=== PATIENT | female | born 1955 | race Caucasian/White ===

== ENCOUNTER 2017-07-18 18:18 | Emergency (ER) | payer OTHER, MEDICAID ==
[~2017-07-18 18:18] MED LIST: AMBIEN10 MG PO; CELEXA20 MG PO; CLEOCIN HCL300 MG PO; COUMADIN1 MG; COUMADIN2.5 MG PO; CYMBALTA20 M1 PO; DIABETA1.25 MG PO; FENOFIBRATE MIC43 MG PO; IBUPROFEN800 MG PO; LAC PO; LAMOTRIGINE25 MG PO; LEVAQUIN750 MG PO; LEVOTHYROXIN0.025 M2; LEVOTHYROXIN0.112 M1 PO; LEVOTHYROXINE0.1 M2 PO; LOSARTAN POTAS100 M1 PO; LOSARTAN POTASS25 M1 PO; MAGNESIUM OXID400 MG PO; METFORMIN ER500 M1; METFORMIN ER500 M1 PO; METFORMIN HCL1000 MG PO; METFORMIN500 M1 PO; METOPROLOL SUCC25 M1; NAPROSYN500 MG PO; NAPROXEN500 M2 PO; NORCO1 TA2 PO; OMEPRAZOLE40 M1 PO; PRA40 PO; PRAVACHOL10 MG; PRAVASTATIN20 M1 PO; TOPROL XL25 MG PO; TRAMADOL50 M1 PO; XARELTO20 M1 PO; ZOLPIDEM TARTRA10 MG PO; ZOLPIDEM5 M1
[2017-07-18 21:21] LABS: BASOPHIL % 0.4 % (0-2); PLATELET COUNT 367 x10^3mcL (130-400)
[2017-07-18 21:22] LABS: CALCIUM 9.5 mg/dL (8.5-10.1); CHLORIDE SERUM 104 mmol/L (98-107); CREATININE SERUM 0.7 mg/dL (0.6-1.0); GFR1 > 60 mL/min; GLUCOSE SERUM 138 mg/dL (74-106); POTASSIUM SERUM 5.2 mmol/L (3.5-5.1); SODIUM SERUM 140 mmol/L (136-145)
[2017-07-18 21:23] LABS: RED CELL DISTRIBUTION WIDTH 15.2 % (11.5-14.5)
[2017-07-18 21:27] LABS: ALBUMIN 3.6 g/dL (3.4-5.0); ALKALINE PHOSPHATASE 107 U/L (46-116); ALT/SGPT 33 U/L (14-59); AST/SGOT 23 U/L (15-37); BILIRUBIN TOTAL 0.4 mg/dL (0.20-1.00); TOTAL PROTEIN, SERUM 7.8 g/dL (6.4-8.2)
[2017-07-18 21:31] LABS: rbc morphology (normal/abnorm) ABNORMAL (NORMAL)
[2017-07-19 00:23] VITALS: BP 138/83
== END 2017-07-19 00:25 | disposition home or self-care (01) ==
LOC: ED 18:18
PROVIDERS: Emergency Medicine
DX: S00.83XA Contusion of other part of head, initial encounter (principal); I10 Essential (primary) hypertension; E11.9 Type 2 diabetes mellitus without complications; R07.89 Other chest pain; Z88.8 Allergy status to other drugs, medicaments and biological substances; Z79.84 Long term (current) use of oral hypoglycemic drugs; Y08.89XA Assault by other specified means, initial encounter; Y93.89 Activity, other specified; Y99.8 Other external cause status; Y92.89 Other specified places as the place of occurrence of the external cause
CPT/HCPCS: 36415; Q0092

== ENCOUNTER 2017-08-31 07:27 | Emergency (ER) | payer OTHER ==
[~2017-08-31] VITALS: Ht 167.6 cm; Wt 92.1 kg
[2017-08-31 09:05] VITALS: BP 137/89
== END 2017-08-31 09:05 | disposition home or self-care (01) ==
LOC: ED 07:27
DX: S60.221A Contusion of right hand, initial encounter (principal); I10 Essential (primary) hypertension; E11.9 Type 2 diabetes mellitus without complications; E03.9 Hypothyroidism, unspecified; Z88.1 Allergy status to other antibiotic agents; Z79.84 Long term (current) use of oral hypoglycemic drugs; V49.9XXA Car occupant (driver) (passenger) injured in unspecified traffic accident, initial encounter; Y93.89 Activity, other specified; Y99.8 Other external cause status; Y92.89 Other specified places as the place of occurrence of the external cause

== ENCOUNTER 2017-10-10 15:14 | Emergency (ER) | payer OTHER ==
[2017-10-10 17:36] VITALS: BP 178/101
== END 2017-10-10 17:36 | disposition home or self-care (01) ==
LOC: ED 15:14
DX: J40 Bronchitis, not specified as acute or chronic (principal); E78.00 Pure hypercholesterolemia, unspecified; I10 Essential (primary) hypertension; E11.9 Type 2 diabetes mellitus without complications; E07.9 Disorder of thyroid, unspecified; I48.91 Unspecified atrial fibrillation; M19.90 Unspecified osteoarthritis, unspecified site; F32.9 Major depressive disorder, single episode, unspecified; Z88.1 Allergy status to other antibiotic agents
CPT/HCPCS: Q0092

== ENCOUNTER 2017-12-12 17:11 | Inpatient (IN) | payer OTHER ==
[~2017-12-12] VITALS: Ht 167.6 cm; Wt 91.7 kg
[~2017-12-12 17:11] MED LIST changes: -CELEXA20 MG PO; +CELEXA40 MG PO
[2017-12-12 17:23] VITALS: Ht 167.6 cm; Wt 91.7 kg
[2017-12-12 17:52] LABS: UA SPECIFIC GRAVITY <=1.005 (1.005-1.035); microscopic required? YES; urine erythrocyte NEGATIVE (NEGATIVE)
[2017-12-12 18:37] LABS: PLATELET COUNT 348 x10^3mcL (130-400)
[2017-12-12 18:39] LABS: RED CELL DISTRIBUTION WIDTH 16.7 % (11.5-14.5)
[2017-12-12 18:52] LABS: CARBON DIOXIDE 28.9 mmol/L (21-32); CHLORIDE SERUM 101 mmol/L (98-107); CREATININE SERUM 0.8 mg/dL (0.6-1.0); GFR1 > 60 mL/min; GLUCOSE SERUM 136 mg/dL (74-106); POTASSIUM SERUM 4.3 mmol/L (3.5-5.1); SODIUM SERUM 138 mmol/L (136-145)
[2017-12-12 18:57] LABS: ALKALINE PHOSPHATASE 182 U/L (46-116); ALT/SGPT 110 U/L (14-59); AST/SGOT 53 U/L (15-37); BILIRUBIN TOTAL 0.41 mg/dL (0.20-1.00)
[2017-12-12 18:58] LABS: ALBUMIN 3.3 g/dL (3.4-5.0)
[2017-12-12] MEDS ORDERED: GOOD SENSE ASPI81 M3 PO (20:29)
[2017-12-12] MEDS ORDERED: AMARYL4 MG PO (20:29)
[2017-12-12] MEDS ORDERED: RISPERDAL1 M1 PO (21:09)
[2017-12-12 21:18] VITALS: BP 179/121
[2017-12-12 21:25] LABS: AMPHETAMINE QUAL UR NONE DETECTED (NEG <=1000)
[2017-12-12 21:26] LABS: MAGNESIUM 1.4 mg/dL (1.8-2.4); PHOSPHOROUS 3.4 mg/dL (2.5-4.9)
[2017-12-12 21:27] LABS: CHOLESTEROL/HDL RATIO 5.8
[2017-12-12 21:38] LABS: T3 TOTAL 0.73 ng/mL
[2017-12-12] MEDS ORDERED: LEADER MAGNESIU1 TAB PO (21:50)
[2017-12-12 21:58] LABS: FREE T4 0.97 ng/dL (0.76-1.46); FREE THYROXINE INDEX 3.1 ug/dL (1.4-4.5)
[2017-12-12] MEDS ORDERED: CARVEDILOL6.25 M1 PO (23:23)
[2017-12-13 02:21] LABS: TOTAL IRON BINDING CAPACITY 374 ug/dL (250-450)
[2017-12-13 02:30] LABS: IRON 23 ug/dL (50-170)
[2017-12-13 03:06] LABS: RED BLOOD CELLS 4.3 M/mm3 (4.10-5.10)
[2017-12-13 04:40] VITALS: BP 125/68
[2017-12-13 06:20] LABS: CALCIUM 8.9 mg/dL (8.5-10.1); CARBON DIOXIDE 29.9 mmol/L (21-32); CHLORIDE SERUM 101 mmol/L (98-107); CREATININE SERUM 0.8 mg/dL (0.6-1.0); GFR1 > 60 mL/min; GLUCOSE SERUM 192 mg/dL (74-106); MAGNESIUM 1.4 mg/dL (1.8-2.4); PHOSPHOROUS 3.8 mg/dL (2.5-4.9); POTASSIUM SERUM 4.3 mmol/L (3.5-5.1); SODIUM SERUM 135 mmol/L (136-145)
[2017-12-13 06:22] LABS: BASOPHIL % 0.4 % (0-2); PLATELET COUNT 311 x10^3mcL (130-400)
[2017-12-13 06:42] LABS: RED CELL DISTRIBUTION WIDTH 16.2 % (11.5-14.5)
[2017-12-13 06:44] LABS: rbc morphology (normal/abnorm) ABNORMAL (NORMAL)
[2017-12-13 09:20] VITALS: BP 146/78
[2017-12-13 12:41] VITALS: BP 140/71
[2017-12-13 17:03] VITALS: BP 169/80
[2017-12-13 19:00] VITALS: BP 150/72
[2017-12-13 20:40] VITALS: BP 172/84
[2017-12-14 05:22] VITALS: BP 113/67
[2017-12-14 06:05] LABS: BASOPHIL % 0.8 % (0-2); PLATELET COUNT 335 x10^3mcL (130-400)
[2017-12-14 06:07] LABS: RED CELL DISTRIBUTION WIDTH 16.6 % (11.5-14.5)
[2017-12-14 06:45] LABS: CALCIUM 8.9 mg/dL (8.5-10.1); CARBON DIOXIDE 27.3 mmol/L (21-32); CHLORIDE SERUM 104 mmol/L (98-107); CREATININE SERUM 0.7 mg/dL (0.6-1.0); GFR1 > 60 mL/min; GLUCOSE SERUM 133 mg/dL (74-106); MAGNESIUM 1.5 mg/dL (1.8-2.4); PHOSPHOROUS 4.1 mg/dL (2.5-4.9); POTASSIUM SERUM 4.1 mmol/L (3.5-5.1); SODIUM SERUM 138 mmol/L (136-145)
[2017-12-14 07:33] LABS: rbc morphology (normal/abnorm) ABNORMAL (NORMAL)
[2017-12-14 09:24] VITALS: BP 132/63
[2017-12-14 14:15] VITALS: BP 114/71
[2017-12-14] MEDS ORDERED: MAC100 PO (15:13)
[2017-12-14] MEDS ORDERED: LAC PO (15:15)
[2017-12-14 15:45] VITALS: BP 114/71
[2017-12-14 16:29] VITALS: BP 134/69
== END 2017-12-14 16:40 | disposition home or self-care (01) | DRG 690 ==
LOC: ED 17:11 → DU 19:52
PROVIDERS: Emergency Medicine; Family Medicine
DX: N39.0 Urinary tract infection, site not specified (principal); E44.0 Moderate protein-calorie malnutrition; E87.1 Hypo-osmolality and hyponatremia; M94.0 Chondrocostal junction syndrome [Tietze]; E11.9 Type 2 diabetes mellitus without complications; I10 Essential (primary) hypertension; Z90.49 Acquired absence of other specified parts of digestive tract; G90.8 Other disorders of autonomic nervous system; Z68.32 Body mass index [BMI] 32.0-32.9, adult; E66.9 Obesity, unspecified; F32.9 Major depressive disorder, single episode, unspecified; K21.9 Gastro-esophageal reflux disease without esophagitis; I48.0 Paroxysmal atrial fibrillation; Z88.8 Allergy status to other drugs, medicaments and biological substances; E83.42 Hypomagnesemia; D64.9 Anemia, unspecified; E03.9 Hypothyroidism, unspecified; F41.1 Generalized anxiety disorder
CPT/HCPCS: 83880; 84439; J0696; J2916; J3010; J3475; J7030; Q0092; Q9967

== ENCOUNTER 2018-01-12 15:33 | Emergency (ER) | payer OTHER ==
[~2018-01-12] VITALS: Ht 167.6 cm; Wt 93.9 kg
[~2018-01-12 15:33] MED LIST changes: +AMARYL4 MG PO; +CARVEDILOL6.25 M1 PO; +GOOD SENSE ASPI81 M3 PO; +LEADER MAGNESIU1 TAB PO; +MAC100 PO; +RISPERDAL1 M1 PO
[2018-01-12 17:48] VITALS: BP 145/74
== END 2018-01-12 17:49 | disposition home or self-care (01) ==
LOC: ED 15:33
DX: R32 Unspecified urinary incontinence (principal); I10 Essential (primary) hypertension; E11.9 Type 2 diabetes mellitus without complications; E07.9 Disorder of thyroid, unspecified; E78.00 Pure hypercholesterolemia, unspecified; M19.90 Unspecified osteoarthritis, unspecified site; F32.9 Major depressive disorder, single episode, unspecified; I48.91 Unspecified atrial fibrillation; Z86.79 Personal history of other diseases of the circulatory system; Z86.59 Personal history of other mental and behavioral disorders

== ENCOUNTER 2018-01-25 18:07 | Emergency (ER) | payer OTHER ==
[~2018-01-25] VITALS: Ht 167.6 cm; Wt 92.1 kg
[2018-01-25 18:15] VITALS: Ht 167.6 cm; Wt 92.1 kg
[2018-01-25 19:14] LABS: BASOPHIL % 0.1 % (0-2); PLATELET COUNT 306 x10^3mcL (130-400)
[2018-01-25 19:15] LABS: UA SPECIFIC GRAVITY 1.015 (1.005-1.035); microscopic required? YES; urine erythrocyte NEGATIVE (NEGATIVE)
[2018-01-25 19:15] LABS: RED CELL DISTRIBUTION WIDTH 17.3 % (11.5-14.5)
[2018-01-25 19:18] LABS: CALCIUM 8.7 mg/dL (8.5-10.1); CARBON DIOXIDE 30.7 mmol/L (21-32); CHLORIDE SERUM 97 mmol/L (98-107); CREATININE SERUM 0.8 mg/dL (0.6-1.0); GFR1 > 60 mL/min; GLUCOSE SERUM 148 mg/dL (74-106); POTASSIUM SERUM 4.4 mmol/L (3.5-5.1); SODIUM SERUM 134 mmol/L (136-145)
[2018-01-25 19:23] LABS: ALBUMIN 3.6 g/dL (3.4-5.0); ALKALINE PHOSPHATASE 206 U/L (46-116); ALT/SGPT 300 U/L (14-59); AST/SGOT 296 U/L (15-37); BILIRUBIN TOTAL 0.7 mg/dL (0.20-1.00); TOTAL PROTEIN, SERUM 7.5 g/dL (6.4-8.2)
[2018-01-25 22:16] VITALS: BP 141/67
== END 2018-01-25 22:16 | disposition home or self-care (01) ==
LOC: ED 18:07
PROVIDERS: Emergency Medicine
DX: K75.9 Inflammatory liver disease, unspecified (principal); R00.2 Palpitations; I10 Essential (primary) hypertension; E11.9 Type 2 diabetes mellitus without complications; I48.91 Unspecified atrial fibrillation; Z88.2 Allergy status to sulfonamides; Z88.1 Allergy status to other antibiotic agents
CPT/HCPCS: 36415; Q0092

== ENCOUNTER 2018-01-30 07:51 | Emergency (ER) | payer OTHER ==
[~2018-01-30] VITALS: Ht 167.6 cm; Wt 90.3 kg
[2018-01-30 07:55] VITALS: Ht 167.6 cm; Wt 90.3 kg
[2018-01-30 08:59] VITALS: BP 135/78
== END 2018-01-30 08:59 | disposition home or self-care (01) ==
LOC: ED 07:51
DX: J06.9 Acute upper respiratory infection, unspecified (principal); N39.0 Urinary tract infection, site not specified

== ENCOUNTER 2018-03-25 17:08 | Inpatient (IN) | payer OTHER ==
[~2018-03-25] VITALS: Ht 167.6 cm; Wt 91.8 kg
[2018-03-25 17:35] VITALS: Ht 167.6 cm; Wt 91.8 kg
[2018-03-25 21:45] LABS: BASOPHIL % 0.3 % (0-2); PLATELET COUNT 301 x10^3mcL (130-400)
[2018-03-25 21:50] LABS: RED CELL DISTRIBUTION WIDTH 14.9 % (11.5-14.5)
[2018-03-25 22:10] LABS: CALCIUM 8.9 mg/dL (8.5-10.1); CARBON DIOXIDE 30.2 mmol/L (21-32); CHLORIDE SERUM 97 mmol/L (98-107); CREATININE SERUM 0.7 mg/dL (0.6-1.0); GFR1 > 60 mL/min; GLUCOSE SERUM 135 mg/dL (74-106); SODIUM SERUM 134 mmol/L (136-145)
[2018-03-25 22:23] LABS: ALKALINE PHOSPHATASE 193 U/L (46-116); ALT/SGPT 330 U/L (14-59); AST/SGOT 380 U/L (15-37); BILIRUBIN TOTAL 1.87 mg/dL (0.20-1.00); FREE T4 1.24 ng/dL (0.76-1.46); TOTAL PROTEIN, SERUM 7.2 g/dL (6.4-8.2)
[2018-03-25 22:27] LABS: ALBUMIN 3.3 g/dL (3.4-5.0)
[2018-03-25 22:40] LABS: UA SPECIFIC GRAVITY <=1.005 (1.005-1.035); microscopic required? YES; urine erythrocyte NEGATIVE (NEGATIVE)
[2018-03-26 00:05] LABS: CHOLESTEROL/HDL RATIO 4.8; MAGNESIUM 1.2 mg/dL (1.8-2.4); PHOSPHOROUS 3.1 mg/dL (2.5-4.9)
[2018-03-26 00:33] VITALS: BP 144/67
[2018-03-26 05:26] VITALS: BP 110/61
[2018-03-26 06:43] LABS: BASOPHIL % 0.2 % (0-2); PLATELET COUNT 247 x10^3mcL (130-400)
[2018-03-26 06:46] LABS: RED CELL DISTRIBUTION WIDTH 15.1 % (11.5-14.5)
[2018-03-26 06:52] LABS: CALCIUM 8.5 mg/dL (8.5-10.1); CARBON DIOXIDE 27.9 mmol/L (21-32); CHLORIDE SERUM 99 mmol/L (98-107); CREATININE SERUM 0.8 mg/dL (0.6-1.0); GFR1 > 60 mL/min; GLUCOSE SERUM 160 mg/dL (74-106); MAGNESIUM 1.4 mg/dL (1.8-2.4); PHOSPHOROUS 3.7 mg/dL (2.5-4.9); POTASSIUM SERUM 3.9 mmol/L (3.5-5.1); SODIUM SERUM 135 mmol/L (136-145)
[2018-03-26 08:30] VITALS: BP 126/63
[2018-03-26 14:32] LABS: IRON 68 ug/dL (50-170); TOTAL IRON BINDING CAPACITY 306 ug/dL (250-450)
[2018-03-26 15:10] LABS: RED BLOOD CELLS 4.34 M/mm3 (4.10-5.10)
[2018-03-26 16:05] VITALS: BP 118/66
[2018-03-26 21:48] VITALS: BP 107/58
[2018-03-27 05:45] VITALS: BP 107/60
[2018-03-27 06:26] LABS: BASOPHIL % 0.2 % (0-2); PLATELET COUNT 236 x10^3mcL (130-400)
[2018-03-27 06:44] LABS: CALCIUM 8.1 mg/dL (8.5-10.1); CARBON DIOXIDE 28.6 mmol/L (21-32); CREATININE SERUM 1.1 mg/dL (0.6-1.0); POTASSIUM SERUM 3.9 mmol/L (3.5-5.1)
[2018-03-27 07:09] LABS: RED CELL DISTRIBUTION WIDTH 15.4 % (11.5-14.5)
[2018-03-27 10:19] VITALS: BP 108/61
[2018-03-27 13:36] VITALS: BP 126/71
[2018-03-27 16:29] VITALS: BP 118/70
[2018-03-27 21:34] VITALS: BP 135/70
[2018-03-28] MEDS ORDERED: LAC PO (05:44)
[2018-03-28] MEDS ORDERED: AUG500 PO (05:44)
[2018-03-28 05:46] VITALS: BP 125/69
[2018-03-28 07:10] LABS: CARBON DIOXIDE 28.2 mmol/L (21-32); CHLORIDE SERUM 105 mmol/L (98-107); CREATININE SERUM 0.9 mg/dL (0.6-1.0); GFR1 > 60 mL/min; GLUCOSE SERUM 227 mg/dL (74-106); POTASSIUM SERUM 4.1 mmol/L (3.5-5.1); SODIUM SERUM 139 mmol/L (136-145)
[2018-03-28 07:15] LABS: BASOPHIL % 0.3 % (0-2); PLATELET COUNT 221 x10^3mcL (130-400)
[2018-03-28 07:36] LABS: RED CELL DISTRIBUTION WIDTH 15.7 % (11.5-14.5)
[2018-03-28 08:15] VITALS: BP 123/72
[2018-03-28 08:26] VITALS: BP 123/72
[2018-03-28 10:59] LABS: ALBUMIN 2.4 g/dL (3.4-5.0); BILIRUBIN DIRECT 1.19 mg/dL (0.0-0.2); BILIRUBIN TOTAL 1.5 mg/dL (0.20-1.00)
== END 2018-03-28 09:20 | disposition home or self-care (01) | DRG 445 ==
LOC: ED 17:08 → DU 23:32 → MU 03-28 09:06
PROVIDERS: Emergency Medicine; Family Medicine; Internal Medicine Gastroenterology
PROC: 0FPB8DZ Removal of Intraluminal Device from Hepatobiliary Duct, Via Natural or Artificial Opening Endoscopic (ICD-10-PCS; principal; 2018-03-26 11:00)
PROC: 0FC98ZZ Extirpation of Matter from Common Bile Duct, Via Natural or Artificial Opening Endoscopic (ICD-10-PCS; 2018-03-26 11:00)
PROC: 0F9G8ZZ Drainage of Pancreas, Via Natural or Artificial Opening Endoscopic (ICD-10-PCS; 2018-03-26 11:00)
DX: K80.30 Calculus of bile duct with cholangitis, unspecified, without obstruction (principal); E44.0 Moderate protein-calorie malnutrition; N39.0 Urinary tract infection, site not specified; K21.9 Gastro-esophageal reflux disease without esophagitis; E11.65 Type 2 diabetes mellitus with hyperglycemia; K29.80 Duodenitis without bleeding; M94.0 Chondrocostal junction syndrome [Tietze]; I48.0 Paroxysmal atrial fibrillation; E03.9 Hypothyroidism, unspecified; E78.00 Pure hypercholesterolemia, unspecified; M19.90 Unspecified osteoarthritis, unspecified site; R74.0 Nonspecific elevation of levels of transaminase and lactic acid dehydrogenase [LDH]; E78.5 Hyperlipidemia, unspecified; D50.9 Iron deficiency anemia, unspecified; E78.1 Pure hyperglyceridemia; Z59.0 Homelessness; Z68.32 Body mass index [BMI] 32.0-32.9, adult
CPT/HCPCS: 43260; 83880; 84439; 87804; C1769; J0696; J1170; J1610; J2175; J2270; J2405; J2543; J2704; J3475; J3490; J7030; J7042; Q0092; Q0162; Q9967

== ENCOUNTER 2018-04-18 18:55 | Emergency (ER) | payer OTHER ==
[~2018-04-18] VITALS: Ht 167.6 cm; Wt 92.1 kg
[~2018-04-18 18:55] MED LIST changes: +AUG500 PO
[2018-04-18 19:19] VITALS: Ht 167.6 cm; Wt 92.1 kg
[2018-04-18 21:32] LABS: BASOPHIL % 0.6 % (0-2); PLATELET COUNT 283 x10^3mcL (130-400); RED CELL DISTRIBUTION WIDTH 14.8 % (11.5-14.5)
[2018-04-18 21:35] LABS: CALCIUM 7.7 mg/dL (8.5-10.1); CARBON DIOXIDE 25.5 mmol/L (21-32); CHLORIDE SERUM 103 mmol/L (98-107); CREATININE SERUM 0.7 mg/dL (0.6-1.0); GFR1 > 60 mL/min; GLUCOSE SERUM 172 mg/dL (74-106); POTASSIUM SERUM 3.9 mmol/L (3.5-5.1); SODIUM SERUM 137 mmol/L (136-145)
[2018-04-18 21:39] LABS: ALBUMIN 3.3 g/dL (3.4-5.0); ALKALINE PHOSPHATASE 108 U/L (46-116); ALT/SGPT 33 U/L (14-59); AST/SGOT 29 U/L (15-37); BILIRUBIN TOTAL 0.5 mg/dL (0.20-1.00); LIPASE 186 IU/L (73-393); TOTAL PROTEIN, SERUM 6.9 g/dL (6.4-8.2)
[2018-04-19 01:24] VITALS: BP 126/71
== END 2018-04-19 01:24 | disposition home or self-care (01) ==
LOC: ED 18:55
PROVIDERS: Emergency Medicine
DX: R10.10 Upper abdominal pain, unspecified (principal); R07.89 Other chest pain; R00.2 Palpitations; E83.51 Hypocalcemia; I10 Essential (primary) hypertension; E11.9 Type 2 diabetes mellitus without complications; E78.00 Pure hypercholesterolemia, unspecified; I48.91 Unspecified atrial fibrillation; Z88.8 Allergy status to other drugs, medicaments and biological substances
CPT/HCPCS: J1885; J2270; J3490; J7030

== ENCOUNTER 2018-04-22 23:28 | Emergency (ER) | payer OTHER ==
[2018-04-23 00:43] LABS: BASOPHIL % 0.6 % (0-2); PLATELET COUNT 312 x10^3mcL (130-400)
[2018-04-23 00:50] LABS: CALCIUM 9.4 mg/dL (8.5-10.1); CARBON DIOXIDE 29.4 mmol/L (21-32); CHLORIDE SERUM 105 mmol/L (98-107); CREATININE SERUM 0.9 mg/dL (0.6-1.0); GFR1 > 60 mL/min; GLUCOSE SERUM 163 mg/dL (74-106); POTASSIUM SERUM 4.2 mmol/L (3.5-5.1); SODIUM SERUM 141 mmol/L (136-145)
[2018-04-23 00:54] LABS: ALKALINE PHOSPHATASE 108 U/L (46-116); ALT/SGPT 36 U/L (14-59); AST/SGOT 25 U/L (15-37); BILIRUBIN TOTAL 0.32 mg/dL (0.20-1.00)
[2018-04-23 00:58] LABS: ALBUMIN 3.3 g/dL (3.4-5.0)
[2018-04-23 01:02] LABS: RED CELL DISTRIBUTION WIDTH 15.7 % (11.5-14.5)
[2018-04-23 02:40] VITALS: BP 144/89
== END 2018-04-23 02:40 | disposition home or self-care (01) ==
LOC: ED 23:28
PROVIDERS: Emergency Medicine
DX: R06.02 Shortness of breath (principal); R07.89 Other chest pain; I48.91 Unspecified atrial fibrillation; I10 Essential (primary) hypertension; E11.9 Type 2 diabetes mellitus without complications; Z90.49 Acquired absence of other specified parts of digestive tract; Z88.1 Allergy status to other antibiotic agents
CPT/HCPCS: 36415; 83880; J7512; J7613; J7644; Q0092